=== PATIENT | male | born 1950 | race African-American/Black ===

== ENCOUNTER 2024-11-08 18:15 | Outpatient (CLI) | payer MEDICARE, MEDICAID | END 2024-11-08 18:16 | disposition home or self-care (01) | LOC: CSHRAD 18:15 | PROVIDERS: ATTEND Nurse Practitioner Family | DX: S89.91XA Unspecified injury of right lower leg, initial encounter (principal); M25.461 Effusion, right knee ==

== ENCOUNTER 2025-01-28 11:22 | Emergency (ER) | payer OTHER | END 2025-01-28 12:53 | disposition home or self-care (01) | LOC: CSHERS 11:22 | DX: M25.531 Pain in right wrist (principal) | CPT/HCPCS: 99283 ==